=== PATIENT | female | born 1950 | race Caucasian/White ===

== ENCOUNTER → 2016-12-07 | Outpatient (CLI) | payer MEDICARE ==
[2016-12-07 10:39] LABS: BUN 14 mg/dL (7-18)
[2016-12-07 10:40] LABS: GFR (ESTIMATED) 72 ML/MIN (59-)
== END ==
LOC: LAB 08:26
PROVIDERS: Family Medicine Geriatric Medicine
DX: E11.9 Type 2 diabetes mellitus without complications (principal); E78.2 Mixed hyperlipidemia

== ENCOUNTER → 2017-03-02 | Outpatient (CLI) | payer MEDICARE ==
--- NOTE | 2017-03-13 09:16 | RADIOLOGY REPORT PS360 ---
DIG MAMM-DX AL W/AVWS W/CAD Ordering Physician: KEVIN DICKINSON Patient Age: 67 years Female COMPARISON: February 2016, August 2014, and March 2016 right mammogram studies INDICATION: Follow-up lumpectomy right breast performed earlier this year at [facility].. Previous biopsies bilateral. TECHNIQUE: MLO cc view both breast. Additional spot views right breast MLO, MLO and cc view. FINDINGS: Right breast The patient had a percutaneous biopsy [place] March 2016 which revealed a malignant grouping of calcifications. Thus subsequent lumpectomy was performed at [facility] early 2016 Prominent density from Postbiopsy changes are seen at this lumpectomy site.. Postlumpectomy density with prominent architecture distortion at the likely generous lumpectomy site... Additional spot views performed here today. This area seems to dissipate somewhat and favor this is postsurgical changes and scar but will recommend follow-up right mammogram in 4 months to confirm stability or/further regression.;. Left breast: Left breast appears stable unchanged since 2015. Follow-up in one year adequate on left. IMPRESSION: -------- The patient had a apparently a generous size lumpectomy right breast., Earlier this year at [facility]. Generous density and architecture distortion a persist at the lumpectomy site a most likely reflects postsurgical changes but warrants close follow-up. Recommend follow-up right mammogram in 4 months to confirm stability. BI-RADS 3 probable benign .. RECOMMENDED FOLLOWUP: 4M -5MONTH FOLLOW-UP (A letter has been sent to the patient regarding results of the study.)
== END ==
LOC: RAD 02-25 15:15
DX: D05.11 Intraductal carcinoma in situ of right breast (principal)
CPT/HCPCS: G0204